=== PATIENT | male | born 1990 | race Caucasian/White ===

== ENCOUNTER 2021-08-22 08:07 | Day surgery (SDC) | payer OTHER ==
[2021-08-22] VITALS (174 sets, daily range): BP systolic 98–144; BP diastolic 49–95
--- NOTE | 2021-08-22 07:30 | NUR ---
PATIENT TO ROOM AMBULATORY. CONSENTS OBTAINED. VITAL SIGNS OBTAINED. DR RENTERIA NOTIFIED. NEW ORDERS RECEIVED. ADMISSION ASSESSMENT COMPLETED AT THIS TIME. IV ESTABLISHED. ORIENTED PATIENT TO ROOM AND UNIT. CALL LIGHT IN REACH. WILL CONTINUE TO MONITOR.
[2021-08-22 08:51] LABS: HEMATOCRIT 39.7 % (39.0-50.0); HEMOGLOBIN 13.1 g/dl (14.0-18.0); IMMATURE GRANULOCYTES 0.2 % (0.0-5.0); MEAN CELL VOLUME 88.6 fL CALC (80.0-100.0); MEAN CORPUSCULAR HGB 29.2 pG CALC (26.0-32.0); NEUT# 3.23 thou/uL (1.82-7.42); RED BLOOD COUNT 4.48 mill/uL (4.70-6.10); RED CELL DISTRI WIDTH 12.9 % (11.5-15.5)
[2021-08-22 09:04] LABS: ALBUMIN 4.1 g/dL (3.2-5.0); ALKALINE PHOSPHATASE 62 u/l (38-126); ANION GAP 6 (6-22 (CALC)); BILIRUBIN, TOTAL 0.3 mg/dL (0.0-1.4); BUN 14 mg/dL (9-20); BUN/CREATININE RATIO 14 (12-20 (CALC)); CARBON DIOXIDE 32 mmol/l (22-30); CHLORIDE 103 mmol/l (95-108); GFR > 60 ML/MIN (>=60 (CALC)); GFR FOR AFR.AMER. > 60 ML/MIN (>=60 (CALC)); POTASSIUM 4.2 mmol/l (3.5-5.1); SGOT/AST 23 u/l (17-59); SODIUM 137 mmol/l (137-146); TOTAL PROTEIN 6.7 g/dL (6.3-8.2)
--- NOTE | 2021-08-22 10:00 | NUR ---
DR RENTERIA AT BEDSIDE AT THIS TIME
--- NOTE | 2021-08-22 11:45 | NUR ---
Induction Note Patient to [facility] procedure room. Time out performed at 1146. Patient placed on monitors, Rebekah hugger, bilateral wrist restraints applied for ET tube protection. Versed 5mg given IV push at 1147 Tourniquet applied to RIGHT arm Lidocaine 100mg given at 1148 IV push followed by Rocoronium 10mg at 1148 IV push and held for 90 seconds. Propofol bolus of 120mg given at 1149 IV push. Succinylcholine 80mg given IV push at 1150. Smooth intubation with 7.5 ETT. Positive CO2. Positive Auscultation for air exchange. Patient placed on ventilator for spontaneous ventilation. Placed on Propofol IV drip at 1151. OG inserted. Positive air on auscultation. Positive gastric content. Stomach washed at this time. Naltrexone 75 mg given via OG tube with Clonidine 0.2 mg given via OG Tube. OG clamped for 45 minutes. Will monitor patient for symptoms of withdrawal and adjust propfol accordingly.
--- NOTE | 2021-08-22 12:55 | NUR ---
OG open note OG open at this time. Gastric content draining into drainage bag. OG to drain for 45 minutes. Propofol will be titrated down based on patient.
--- NOTE | 2021-08-22 13:35 | NUR ---
OG close note Stomach washed at this time. Naltrexone 50 mg with Clonidine 0.2 mg via OG tube. OG will be clamped for 45 minutes.
--- NOTE | 2021-08-22 15:15 | NUR ---
OG close note Stomach washed at this time. Naltrexone 25 mg with Clonidine 0.2 mg via OG tube. OG will be clamped for 45 minutes.
--- NOTE | 2021-08-22 17:06 | NUR ---
Extubation note Closing medications given Benadryl 50mg IV push, Decadron 10mg IV push,Magnesium 4 grams IV, Zofran 8mg IV push, Octreotide 100mcg SC. Stomach washed out prior to extubation. Suctioned gastric content. OG removed. Patient extubated. Propofol Discontinued. Wrist restraints removed. Rebekah hugger Removed. See ANR Moderate sedate recovery record for further notes and assessment.
--- NOTE | 2021-08-22 17:20 | NUR ---
patient to med surg via bed, report to bill.
--- NOTE | 2021-08-22 17:26 | NUR ---
PATIENT CAME FROM THE [facility] PROCEDURE VIA BED BY GISELA WINN. REPORT RECEIVED FROM PA. PATIENT IS SLEEPING ON HIS RIGHT SIDE WITH NO DISTRESS NOTED. O2 AT 2L VIA NC SATS 98%. RESPS EVEN AND UNLABORED. BED ALARM IN PLACE. CALL LIGHT IN REACH.
--- NOTE | 2021-08-22 18:55 | NUR ---
RECEIVED REPORT FROM GISELA SUAREZ.
--- NOTE | 2021-08-22 20:20 | NUR ---
PT IN BED; A&O X2. EVEN AND UNLABORED RESPIRATIONS; CLEAR LUNG SOUNDS UPON AUSCULTATION. O2 SAT 98% ON ROOM AIR. HYPOACTIVE BOWEL SOUNDS X4 QUADRANTS. IV SITES HEALTHY AND PATENT. SKIN IS INTACT. PT ASSITED WITH USE OF URINAL: 300 CC, CLEAR, SEBLE URINE. PT C/O BEING COLD; VALDEZ HUGGER PROVIDED. BED ALARM AND SAFETY PRECAUTIONS IN PLACE.
--- NOTE | 2021-08-22 21:50 | NUR ---
PT RESTLESS; PT PULL OUT #18G IV FROM LEFT HAND; CATETHER IS INTACT. PT AGITATED; PT C/O NAUSEA. ADMINISTERED ATIVAN AND PHENERGAN PER EMAR. BED ALARM AND SAFETY PRECAUTIONS IN PLACE WITH CALL LIGHT IN REACH.
--- NOTE | 2021-08-23 00:20 | NUR ---
PT SLEEPING. NO DISTRESS OR PAIN NOTED. BED ALARM AND SAFETY PRECAUTIONS IN PLACE WITH CALL LIGHT IN REACH.
[2021-08-23 04:00] VITALS: BP 117/61
--- NOTE | 2021-08-23 04:40 | NUR ---
ADMINISTERED SCHEDULED MEDS PER EMAR; HOLD CATAPRES PER DR'S ORDERS. PT'S HR 49. PT'S STATES HE'S UNABLE TO FIND A COMFORTABLE POSITION; WARM BLANKET PROVIDED. BED ALARM AND SAFETY PRECAUTIONS IN PLACE. CALL LIGHT WITHIN REACH.
--- NOTE | 2021-08-23 07:00 | NUR ---
RECEIVE REPORT FROM CEDRIC CRUZ
[2021-08-23 07:21] LABS: HEMATOCRIT 38.3 % (39.0-50.0); HEMOGLOBIN 12.9 g/dl (14.0-18.0); IMMATURE GRANULOCYTES 0.2 % (0.0-5.0); MEAN CELL VOLUME 85.9 fL CALC (80.0-100.0); MEAN CORPUSCULAR HGB 28.9 pG CALC (26.0-32.0); MEAN CORPUSCULAR HGB CONC 33.7 g/dL CAL (32.0-36.0); NEUT# 9.64 thou/uL (1.82-7.42); RED BLOOD COUNT 4.46 mill/uL (4.70-6.10); RED CELL DISTRI WIDTH 12.8 % (11.5-15.5)
[2021-08-23 07:59] VITALS: BP 104/72
--- NOTE | 2021-08-23 08:00 | NUR ---
PATIENT ALERT AND ORIENTED X3. NO RESPIRATORY DISTRESS, NO PAIN AT THIS TIME. PATIENT IS EDUCATES ABOUT MEDICATIONS AND NURSING PLAN FOR TODAY. PATIENT REFER UNDERSTAND.
[2021-08-23 08:18] LABS: ALKALINE PHOSPHATASE 62 u/l (38-126); BUN 15 mg/dL (9-20); BUN/CREATININE RATIO 17 (12-20 (CALC)); CHLORIDE 104 mmol/l (95-108); CREATININE 0.9 mg/dL (0.7-1.3); GFR > 60 ML/MIN (>=60 (CALC)); GFR FOR AFR.AMER. > 60 ML/MIN (>=60 (CALC)); POTASSIUM 3.6 mmol/l (3.5-5.1); SGOT/AST 24 u/l (17-59); SODIUM 136 mmol/l (137-146); TOTAL PROTEIN 6.7 g/dL (6.3-8.2)
[2021-08-23 08:38] LABS: ANION GAP 12 (6-22 (CALC)); BILIRUBIN, TOTAL 0.5 mg/dL (0.0-1.4); CARBON DIOXIDE 24 mmol/l (22-30)
--- NOTE | 2021-08-23 12:13 | NUR ---
PATIENT STABLE. RESTING IN BED.
== END 2021-08-23 15:10 | disposition home or self-care (01) | DRG 897 ==
LOC: ANR 08:07 → MS2 08:07 → ANR 10:36
PROVIDERS: ATTEND Anesthesiology
DX: F11.20 Opioid dependence, uncomplicated (principal)
CPT/HCPCS: J2060; J2354; J3475